=== PATIENT | female | born 1930 | race Caucasian/White ===

== ENCOUNTER 2017-08-15 11:27 | Inpatient (IN) | payer OTHER ==
[~2017-08-15] VITALS: Ht 152.4 cm; Wt 60.2 kg
[~2017-08-15 11:27] MED LIST: ADULT LOW DOSE81 M1 PO; CEFTIN500 MG PO; CELEBREX200 MG PO; COLACE50 MG PO; CYMBALTA30 MG PO; Calcium Carbonate,Ca PO; Colace PO; Ecotrin PO; Feosol PO; Fosamax PO; Hydrodiuril,Oretic,E PO; LIPITOR40 MG PO; Metamucil Packet PO; NABUMETONE500 MG PO; NASONEX17 GM BOTH NARES; NASONEX17 GM NS; NEURONTIN300 MG PO; Neurontin PO; OXECTA5 MG PO; PERCOCET 5/31 TABLET PO; SENOKOT S,PE1 TABLET PO; STOOL SOFTENER1 EACH PO; TAZTIA XT180 M1 PO; ULTRAM50 MG PO; Vicodin,Lortab 5/500 PO; ZITHROMAX Z-PA250 MG PO; ZOFRAN4 MG PO; Zithromax PO
[2017-08-15 12:12] LABS: EOSINOPHIL (%) 0.7 % (0-5); EOSINOPHIL COUNT 0.1 K/uL (0-0.3); HEMATOCRIT 43.1 % (36.0-46.0); IMMATURE GRANULOCYTE (%) 0.2 % (0.0-0.7); LYMPHOCYTE COUNT 1.1 K/uL (1.0-2.8); MCHC 33.2 G/DL (30.0-36.0); MCV 93.5 FL (83-99); MEAN PLAT.VOLUME 8.7 uM^3 (9.5-12.4); MONOCYTE (%) 4.2 % (3-12); MONOCYTE COUNT 0.4 K/uL (0-0.8); PLATELET COUNT 228 K/uL (156-360); RBC DIS.WIDTH-CV 13.5 % (11.8-14.6); RBC DIS.WIDTH-SD 45.9 % (39-53); RED BLOOD COUNT 4.61 M/uL (3.80-5.20); WHITE BLOOD COUNT 8.5 K/uL (4.1-10.2)
[2017-08-15 12:21] LABS: CHLORIDE 104 mEq/L (99-109); POTASSIUM 4.4 mEq/L (3.7-5.4); SODIUM 140 mEq/L (136-147)
[2017-08-15 12:24] LABS: GLUCOSE 126 mg/dL (70-99)
[2017-08-15 12:25] LABS: ANION GAP 15 MEQ/L (2-14)
[2017-08-15 12:27] LABS: ALKALINE PHOSPHATASE 99 IU/L (3-129)
[2017-08-15 12:28] LABS: GFR ESTIMATE (CALCULATED) > 59 mL/min/
[2017-08-15 12:29] LABS: UREA NITROGEN (BUN) 23 mg/dL (9-23)
[2017-08-15 12:31] LABS: CREATINE KINASE 105 IU/L (1-294); TOTAL CK 105 IU/L (1-294)
[2017-08-15 12:33] LABS: TROP-I INTERPRETATION NEGATIVE; TROPONIN-I < 0.01 ng/mL (0.0-0.30)
[2017-08-15 12:36] LABS: CK-MB 3.6 ng/mL (0.0-4.9)
[2017-08-15 13:39] LABS: ADD MIUA? YES; BILIRUBIN NEGATIVE; BLOOD SMALL; COLOR YELLOW ((YELLOW)); GLUCOSE (STRIP) NEGATIVE; KETONES 20; LEUKOCYTES TRACE; NITRITE NEGATIVE; PROTEIN (STRIP) NEGATIVE; SPECIFIC GRAVITY 1.012 (1.000-1.030); UROBILINOGEN 0.2 MG/DL (0.2-1.0)
[2017-08-15 13:44] LABS: BACTERIA RARE /HPF; EPITHELIAL CELLS RARE /HPF; MUCUS TRACE /LPF; RED BLOOD CELLS 0-5 /HPF (0-5); UCUL ADDED? NO; WHITE BLOOD CELLS 0-5 /HPF (0-5)
[2017-08-15 20:07] LABS: Estimated Average Glucose 126 mg/dL (70-123)
[2017-08-15 20:11] LABS: HDL CHOLESTEROL 43 MG/DL (Desirable>=50); LDL CHOLESTEROL 64 mg/dL (Desirable<100); NON-HDL CHOLESTEROL 78 mg/dL (Desirable<160); TOTAL CHOLESTEROL 121 mg/dL (Desirable<200); TRIGLYCERIDES 69 MG/DL (Normal: <150)
[2017-08-15 21:05] VITALS: BP 91/62
[2017-08-15] MEDS ORDERED: DILTIAZEM 24HR120 M2 PO (22:59)
[2017-08-15] MEDS ORDERED: GABAPENTIN600 MG PO (23:11)
[2017-08-15] MEDS ORDERED: PROAIR HFA8.5 GM IH (23:42)
[2017-08-16 03:12] VITALS: BP 122/77
[2017-08-16 07:36] VITALS: BP 95/57
[2017-08-16 16:45] VITALS: BP 96/65
[2017-08-16 23:55] VITALS: BP 107/73
[2017-08-17 07:38] VITALS: BP 96/65
== END 2017-08-17 12:50 | disposition home or self-care (01) | DRG 71 ==
LOC: EME 11:27 → 5EAST 18:15 → 5SOUTH 18:15 → CANRESERV 18:16 → ENRESERV 18:16 → EDOF 19:13 → ENRESERV 19:21 → 5SOUTH 20:32
PROVIDERS: Emergency Medicine; Hospitalist
DX: G93.41 Metabolic encephalopathy (principal); G45.9 Transient cerebral ischemic attack, unspecified; R00.0 Tachycardia, unspecified; J44.9 Chronic obstructive pulmonary disease, unspecified; I10 Essential (primary) hypertension; E78.5 Hyperlipidemia, unspecified; F32.9 Major depressive disorder, single episode, unspecified; M19.90 Unspecified osteoarthritis, unspecified site; K59.09 Other constipation; Z66 Do not resuscitate; Z96.659 Presence of unspecified artificial knee joint; Z91.81 History of falling; Z79.82 Long term (current) use of aspirin; Z86.73 Personal history of transient ischemic attack (TIA), and cerebral infarction without residual deficits; Z87.891 Personal history of nicotine dependence; Z88.0 Allergy status to penicillin; Z83.3 Family history of diabetes mellitus
CPT/HCPCS: 70450; 70549; 70551; 71010; 71250; 78582; 80053; 80061; 81003; 82550; 82553; 82607; 82948; 83036; 83735; 84443; 84484; 85025; 85379; 90686; 93005; 93880; 99202; 99281; 99285; A9540; A9567; J1644; J1650; J7030; J7040